=== PATIENT | female | born 1990 | race Caucasian/White ===

== ENCOUNTER 2023-08-27 08:37 | Outpatient (CLI) | payer BC, SELFPAY | END 2023-08-27 08:38 | disposition home or self-care (01) | PROVIDERS: Visit Provider Registered Nurse | DX: Z34.02 Encounter for supervision of normal first pregnancy, second trimester (principal); Z13.0 Encounter for screening for diseases of the blood and blood-forming organs and certain disorders involving the immune mechanism | CPT/HCPCS: 83540; 83550; 86787; 87491; 87591 ==

== ENCOUNTER 2023-09-21 08:11 | Outpatient (CLI) | payer BC, SELFPAY ==
--- NOTE | 2023-09-21 08:15 | CRLHL7_ITS ---
For Patients: As a result of the Century Cures Act, medical imaging exams and procedure reports are released immediately into your electronic medical record. You may view this report before your referring provider. If you have questions, please contact your health care provider. INDICATION: Evaluate anatomy. COMPARISON: none TECHNIQUE: Real time arndt scale imaging of the fetus was performed as well as color Doppler analysis of the umbilical vessels. FINDINGS: Sonographic imaging demonstrates a single living intrauterine gestation. Fetus demonstrates a regular cardiac rate of 152 beats per minute. Fetus has a vertex position. The placenta lies anteriorly without evidence of placenta previa. Placental edge 6.0 cm from the internal cervical os. Amniotic fluid volume appears normal. Single deepest vertical pocket: 4.1 cm. The cervix is closed and measures 4.3 cm in length. The composite ultrasound gestational age is calculated at 20 weeks 3 days with an estimated sonographic due date of 02/05/2024. The estimated weight is 358 grams which lies at the 74th %. The following biometric measurements were obtained: Biparietal diameter: 4.8 cm/20 weeks 3 days 65th% Head circumference: 17.9 cm/20 weeks 2 days 59th% Abdominal circumference: 16.1 cm/21 weeks 2 days 82nd% Femur length: 3.1 cm/19 weeks 5 days 31st% The HC/AC ratio measures: 1.11 range (1.07-1.25) On anatomic survey, there is a normal appearance of the cerebral ventricles, cavum septi pellucidi, cisterna magna and cerebellum. The nose, lips, and facial profile appear normal. The cervical, thoracic and lumbar spine are well visualized and appear normal. There is a normal four-chamber heart view and the left and right ventricular outflow tracts appear normal. The diaphragm and stomach appear normal. The kidneys and bladder also appear normal. There is a normal three-vessel cord and cord insertion site. The four extremities appear normal. IMPRESSION: Normal OB ultrasound exam with concordance of clinical and sonographic dating. No intrinsic abnormalities noted on anatomic survey. Dictated by Yong Roy MD @ 09/21/2023 11:17:06 AM (Electronically Signed)
== END 2023-09-21 08:12 | disposition home or self-care (01) ==
LOC: US 08:12
PROVIDERS: Visit Provider Registered Nurse
DX: Z34.92 Encounter for supervision of normal pregnancy, unspecified, second trimester (principal); Z3A.20 20 weeks gestation of pregnancy
CPT/HCPCS: 76805

== ENCOUNTER 2023-10-13 18:18 | Outpatient (CLI) | payer BC, SELFPAY ==
[2023-10-13 18:33] VITALS: PULSE 84; O2SAT 100
[2023-10-13 18:40] VITALS: BP 124/75; PULSE 90
[2023-10-13 18:42] VITALS: RESP 16; TEMP 36.6
[2023-10-13 18:57] LABS: Appearance Urine Clear (Clear); Bilirubin Urine Negative (Negative); Blood Urine Negative (Negative); Color Urine Yellow (Yellow); Glucose Urine Negative (Negative); Ketones Urine Negative (Negative); Leukocyte Esterase Urine Negative (Negative); Nitrite Urine Negative (Negative); Protein Urine Negative (Negative); Specific Gravity Urine <= 1.005 (1.000-1.030); Urobilinogen Urine 0.2 (0.2-1.0)
[2023-10-13 19:01] LABS: Amnisure Rom* Negative
[2023-10-13 19:04] LABS: Clue Cells <20% Clue Cells Seen (None Seen); Trichomonas No Trichomonas Seen (None Seen); Yeast No Yeast Seen (None Seen)
--- NOTE | 2023-10-13 19:16 | PC.OBNST ---
NST Note NST Note Start: 10/13/23 18:22 Freq: ONCE Status: Active Protocol: Document 10/13/23 19:14 ZENY (Rec: 10/13/23 19:16 [facility] [id number]) NST Note 1 Para (# of births) 0 EDC 02/08/24 Gestational Age In Weeks & Days 23 Weeks & 1 Days Patient Presented with Complaint(s) of Leaking fluid Other Complaints Patient had one small gush of fluid after using the bathroom . Amnisure negative. ELISEO and UA also negative. Appropriate for Gestational Age Yes ALEXEY Varner, ALEXEY Date 10/13/23 Appropriate for Gestational Age Yes ALEXEY Goldberg RN Date 10/13/23 OB NST charge Yes Complete NST Note via Write Note Yes The provider's electronic signature indicates the NST is reactive/appropriate for gestational age. *Note to provider: If an addendum is required, open the patient's chart and click on the note under the Nurse/Allied Health tab.
--- NOTE | 2023-10-19 13:34 | PC.OBNST ---
NST Note NST Note Start: 10/13/23 18:22 Freq: ONCE Status: Discharge Protocol: Document 10/13/23 19:14 ZENY (Rec: 10/13/23 19:16 [facility] [id number]) NST Note 1 Para (# of births) 0 EDC 02/08/24 Gestational Age In Weeks & Days 23 Weeks & 1 Days Patient Presented with Complaint(s) of Leaking fluid Other Complaints Patient had one small gush of fluid after using the bathroom . Amnisure negative. ELISEO and UA also negative. Appropriate for Gestational Age Yes ALEXEY Varner, ALEXEY Date 10/13/23 Appropriate for Gestational Age Yes ALEXEY Goldberg RN Date 10/13/23 OB NST charge Yes Complete NST Note via Write Note Yes The provider's electronic signature indicates the NST is reactive/appropriate for gestational age. *Note to provider: If an addendum is required, open the patient's chart and click on the note under the Nurse/Allied Health tab.
== END 2023-10-13 19:21 | disposition home or self-care (01) ==
LOC: OB OUT 18:18 → OB 18:25
PROVIDERS: Visit Provider Advanced Practice Midwife
DX: O47.02 False labor before 37 completed weeks of gestation, second trimester (principal); Z3A.23 23 weeks gestation of pregnancy
CPT/HCPCS: 59025; 81003; 84112; 87210; G0463

== ENCOUNTER 2023-11-18 09:07 | Outpatient (CLI) | payer BC, SELFPAY | END 2023-11-18 09:08 | disposition home or self-care (01) | LOC: NFLDREF 09:08 | PROVIDERS: Visit Provider Midwife | DX: Z34.93 Encounter for supervision of normal pregnancy, unspecified, third trimester (principal); Z3A.28 28 weeks gestation of pregnancy | CPT/HCPCS: 86592; 86850; J2791 ==

== ENCOUNTER 2024-02-15 05:57 | Inpatient (IN) | payer BC, SELFPAY ==
[2024-02-15] VITALS (57 sets, daily range): BP systolic 95–157; BP diastolic 53–100; PULSE 73–136; RESP 16–18; TEMP 36.5–37.1; O2SAT 96–100; BMI 30.1
--- OUTSIDE RECORDS SUMMARY | 2024-02-15 05:43 | XMS_ITS | Clinical Summary ---
Author Organization [facility] Address [address] [place] [address] Care Team Providers Care External Grinder Name Role Phone No Primary/Referring, Phy Primary Care Provider Unavailable Source Comments You are receiving this document as you are listed as the primary care provider,follow-up provider, or the patient has been referred to you for consultation.This is in compliance with the Medicare and[facility] EHR Incentive Program,which states Providers who transition their patient to another setting of careor provider of care or refers their patient to another provider of care shouldprovide summary care record for each transition of care or referral. [facility] Allergies No known active allergies Medications Medication Sig Dispensed Refills Start Date End Date Status propranolol (INDERAL) 10 MG tabletIndications:Per formance anxiety (HRC) Take 1 Tablet (10 mg) by mouth daily. 60 Tablet 02/17/2022 Active Active Problems Problem Noted Date Diagnosed Date Chronic abdominal pain 12/07/2018 Performance anxiety 02/01/2015 Elevated blood pressure read ing without diagnosis of hypertension 07/18/2014 Immunizations Name Administration Dates Next Due HepB Adolescent/High Risk Infant 05/01/2003,11/21,10/28/2002 HepB Ped/Adol (0-18 yrs) 05/01/2003,12/05/2002,0 10/28/2002 MMR 10/28/2002 Tdap 09/29/2011 Family History Medical History Relation Name Comments No Known Problems Father No Known Problems Mother No Known Problems Brother 1 No Known Problems Brother 2 Cancer, Breast Maternal Grandmother No Known Problems Sister Cancer, Colon Negative Family History Cancer, Ovary Negative Family History Relation Name Status Comments Father Alive Mother Alive Brother 1 Alive Brother 2 Alive Maternal Grandmother Sister Alive Social History Tobacco Use Types Packs/Day Years Used Date Smoking Tobacco: Never Smokeless Tobacco: Never Alcohol Use Standard Drinks/Week Comments Yes 0 (1 standard drink = 0.6 oz pur e alcohol) 5 per week Sex and Gender Information Value Date Recorded Sex Assigned at Not on file Gender Identity Not on file Sexual Orientation Not on file Last Filed Vital Signs Vital Sign Reading Time Taken Comments Blood Pressure 135/87 02/17/2022 11:37 AM ENVIRONMENTAL SERVICES TECH Pulse 76 02/17/2022 11:37 AM ENVIRONMENTAL SERVICES TECH Temperature 36.7 C (98.1 F) 12/22/2009 9:38 PM CDT Respiratory Rate 16 12/22/2009 9:38 PM CDT Oxygen Saturation 99% 12/22/2009 9:38 PM CDT Inhaled Oxygen Concentration - - Weight 75.3 kg (166 lb) 02/17/2022 11:37 AM ENVIRONMENTAL SERVICES TECH Height 170.8 cm (5' 7.25) 12/07/2018 7:47 AM CD T Body Mass Index 25.81 12/07/2018 7:47 AM CDT Plan of Treatment Health Maintenance Due Date Last Done Comments Hep C Screening (Preventive Services) 1989 HIV Screening (Preventive Services) 2005 Adult Preventive Visit 12/02/2020 12/02/2018 DTaP/Tdap/Td (2 - Tdap) 09/28/2021 09/29/2011 COVID-19 Vaccine ( season) 2023 Influenza (#1) 2023 Cervical Cancer Screening 02/17/2027 02/17/2022, 02/2019 Zoster/Shingles (1 of 2) 11/30/2039 HepB Completed 05/01/2003, 11/2003, 12/05/2002, Additional history exists HPV Vaccine Aged Out No longer eligi ble based on patient's age to complete this topic HepA Aged Out No longer eligi ble based on patient's age to complete this topic Hib Aged Out No longer eligi ble based on patient's age to complete this topic IPV (Polio) Aged Out No longer eligi ble based on patient's age to complete this topic RSV Aged Out No longer eligi ble based on patient's age to complete this topic MCV4 Aged Out No longer eligi ble based on patient's age to complete this topic Pneumococcal Aged Out No longer eligi ble based on patient's age to complete this topic Procedures Procedure Name Priority Date/Time Associated Diagnosis Comments PAP TEST Routine 02/17/2022 12:06 PM ENVIRONMENTAL SERVICES TECH Screening for malignant neoplasm of cervix from Last 3 Months or Most Recently Relevant to Health Maintenance Results * PAP Test (02/17/2022 12:06 PM ENVIRONMENTAL SERVICES TECH) Case Report Pap Case: [id number] Authorizing Provider: Ghazal Vernon MD Collected: 02/17/2022 1206 Ordering Location: [facility] Received: 02/17/2022 1307 Services-HEALTHCARE MANAGEMENT CONSULTANT First Screen: Stephanie Tanner CT (ASCP) Specimen: Pap Test, Routine, Cervix/Endocervix 02/27/2022 2:10 PM ENVIRONMENTAL SERVICES TECH [facility] Pap Specimen Adequacy Satisfactory for evaluation, endocervical/abdalla sformation zone component present. 02/27/2022 2:10 PM ENVIRONMENTAL SERVICES TECH [facility] Pap Interpretation (NILM) Negative for intraepithelial lesion or malignancy. 02/27/2022 2:10 PM ENVIRONMENTAL SERVICES TECH [facility] Pap Disclaimer The Pap test is a screening test designed to aid in the detection of cervical cancer and its precursor lesions. It is not a diagnostic procedure and should not be used as the sole means of detecting cervical cancer. Both false-positive and false-negative results may occur. 02/27/2022 2:10 PM ENVIRONMENTAL SERVICES TECH [facility] Gross Description The specimen is received in SurePath fixative and properly labeled. 1 Pap-stained SurePath slide is prepared. 02/27/2022 2:10 PM ENVIRONMENTAL SERVICES TECH [facility] Embedded Images 2:10 PM ENVIRONMENTAL SERVICES TECH [facility] Other Specimen Type ENTIRE ENDOCERVIX / Unknown 02/17/2022 12:06 PM ENVIRONMENTAL SERVICES TECH 02/17/2022 1:07 PM ENVIRONMENTAL SERVICES TECH Comment:LMP: Patient's last menstrual period was 02/03/2022 (exact date). Ghazal Vernon MD LAB PATHOLOGY [facility] [address] [place] [address], [facility] from Last 3 Months or Most Recently Relevant to Health Maintenance Care Teams External Grinder Relationship Specialty Start Date End Date No Primary/Referring, Corrie PCP - General 11/14/14
--- OUTSIDE RECORDS SUMMARY | 2024-02-15 05:43 | XMS_ITS | Referral Summary ---
Author Organization [facility] Address [address] [place] [address] Care Team Providers Care Applied Psychology Chair Name Role Phone Jaelyn Canales MD Primary Care Provider [phone] Allergies No known active allergies Medications propranolol (INDERAL) 10 MG tabletIndication s:Performance anxiety Take 1 tablet (10 mg) by mouth 2 times daily as needed 60 tablet 11 01/03/2020 Active Active Problems Problem Noted Date Diagnosed Date Carrier of hemochromatosis HFE gene mutation Overview (03/14/2020): Heterozygosity should not lead to abnormal iron levels or problems. Chronic abdominal pain 12/07/2018 Hypertension, unspecified type 07/01/2017 Performance anxiety 02/01/2015 Elevated blood pressure read ing without diagnosis of hypertension 07/18/2014 Resolved Problems Problem Noted Date Diagnosed Date Resolved Date LSIL (low grade squamous int raepithelial lesion) on Pap smear 06/21/2014 07/30/2016 Overview (07/30/2016): 07/17/14 LSIL, 21-24 yr old, Dx pap 12 months per guidelines 07/23/15 Pap= NIL. 1 yr pap 07/28/16 Pap= NIL. Routine screening per guidelines. Immunizations Name Administration Dates Next Due HepB 05/01/2003,12/05/2002,10/28/2002 MMR 10/28/2002 TDAP (Adacel,Boostrix) 09/29/2011 Social History Tobacco Use Types Packs/Day Years Used Date Smoking Tobacco: Never Smokeless Tobacco: Never Alcohol Use Standard Drinks/Week Comments Yes 0 (1 standard drink = 0.6 oz pur e alcohol) PHQ-2 Answer Date Recorded PHQ-2 Score 0 12/28/2019 Adolescent Education Answer Date Record ed Getting School Help Needed Not on file 12/12 Comments No Sex and Gender Information Value Date Recorded Sex Assigned at Not on file Legal Sex Female 4:18 PM CDT Gender Identity Not on file Sexual Orientation Not on file 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 Not on file Not on sandrine e Last Filed Vital Signs Vital Sign Reading Time Taken Comments Blood Pressure 126/84 12/28/2019 5:16 PM CDT Pulse 77 12/28/2019 5:16 PM CDT Temperature 36.6 C (97.8 F) 12/28/2019 5:16 PM CDT Respiratory Rate 20 12/28/2019 5:16 PM CDT Oxygen Saturation 99% 12/28/2019 5:16 PM CDT Inhaled Oxygen Concentration - - Weight 68.5 kg (151 lb) 12/28/2019 5:16 PM CDT Height 171.5 cm (5' 7.5) 12/28/2019 5:16 PM CDT Body Mass Index 23.3 12/28/2019 5:16 PM CDT Plan of Treatment Not on file Insurance [employer] Care Teams Applied Psychology Chair Relationship Specialty Start Date End Date Jaelyn Canales MD [address] [facility] [place] [address] PCP - General Internal Medicine 08/28/14
--- OUTSIDE RECORDS SUMMARY | 2024-02-15 05:43 | XMS_ITS | Clinical Summary ---
Author Organization [facility] Address [address] [place] [address] Care Team Providers Care Unit Secy Name Role Phone Jaelyn Canales MD Primary Care Provider [phone] Allergies No known active allergies Medications propranolol [...] HepB 05/01/2003,12/05/2002,10/28/2002 MMR 10/28/2002 TDAP (Adacel,Boostrix) 09/29/2011 Family History Medical History Relation Comments Family History Negative Brother Liver Disease Brother Gilbert Syndrome Family History Negative Father Breast Cancer Maternal Grandmother Family History Negative Mother Family History Negative Sister Relation Status Comments Brother Alive Father Alive Maternal Grandmother Mother Alive Sister Alive Social History Tobacco Use Types [...] 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
--- OUTSIDE RECORDS SUMMARY | 2024-02-15 05:43 | XMS_ITS | Encounter Summary ---
Author Organization [facility] Address [address] [place] [address] Care Team Providers Care Distillery Worker Name Role Phone Jaelyn Canales MD Primary Care Provider [phone] Jaelyn Canales MD Unavailable [phone] Jaelyn Canales MD Unavailable [phone] Jaelyn Canales MD Unavailable [phone] Encounter Details Date Type Department Care Team (Late st Contact Info) Description 07/10/2017 MyC Medical Advice [facility] [place] [address] [place] [address] [place] [address] [place] [address] [place] [address] Social History Tobacco Use Types Packs/Day Years Used Date Smoking Tobacco: Never Smokeless Tobacco: Never Alcohol Use Standard Drinks/Week Comments Yes 0 (1 standard drink = 0.6 oz pur e alcohol) Comments No Sex and Gender Information Value Date Recorded Sex Assigned at Not on file Legal Sex Female 4:18 PM CDT Gender Identity Not on file Sexual Orientation Not on file 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 Nadia Mitchell RN documented in this encounter Plan of Treatment Not on file documented as of this encounter Visit Diagnoses Not on filedocumented in this encounter Care Teams Distillery Worker Relationship Specialty Start Date End Date Jaelyn Canales MD [address] [place] [address] [place] [id number] PCP - General Internal Medicine 08/28/14 Jaelyn Canales MD [address] [place] [address] [place] [address] PCP - Assigned PCP 05/05/16 05/25/18 Jaelyn Canales MD [address] [place] [address] [place] [id number] Assigned PCP 05/05/16 03/07/22 Jaelyn Canales MD [address] [place] [address] [place] [id number] Assigned PCP 05/17/22 01/02/23 documented as of this encounter
--- OUTSIDE RECORDS SUMMARY | 2024-02-15 05:43 | XMS_ITS | Clinical Summary ---
Author Organization [facility] Address [place], [place] [address] Care Team Providers Care Straddle Bug Operator Name Role Phone Clinic, No Pcp Or Primary Care Provider Unavaila ble Allergies No known active allergies Medications Medication Sig Dispensed Refills Start Date End Date Status drospirenone-ethinyl estradiol (GIANVI, 28,) 3-20 mg-mcg tabletIndications:Con traception Take 1 tablet by mouth once daily. 3 Package 0 05/31/2013 Active levonorgestrel-ethiny l estrad, 0.1-20 mg-mcg, (LESSINA) 0.1-20 mg-mcg tablet Take 1 tablet by mouth once daily. 3 Package 3 06/17/2013 Active Active Problems Problem Noted Date Diagnosed Date Healthcare maintenance 01/14/2013 Immunizations Name Administration Dates Next Due Hepatitis B (Peds) 05/01/2003,12/05/2002, 003 MMR 10/28/2002 Tdap 09/29/2011 Family History Medical History Relation Name Comments Good Health Father Good Health Mother Relation Name Status Comments Father Alive Mother Alive Social History Tobacco Use Types Packs/Day Years Used Date Smoking Tobacco: Never Smokeless Tobacco: Never Alcohol Use Standard Drinks/Week Comments No 0 (1 standard drink = 0.6 oz pur e alcohol) Sex and Gender Information Value Date Recorded Sex Assigned at Not on file Gender Identity Not on file Sexual Orientation Not on file Obstetrics History Para Term AB IAB SAB Ectopic Multiple Livin g Live Births 0 0 0 0 0 0 0 0 0 0 Last Filed Vital Signs Vital Sign Reading Time Taken Comments Blood Pressure 158/92 05/08/2014 9:52 PM NUCLEAR CARDIOLOGY TECHNOLOGIST Pulse 122 05/08/2014 9:52 PM NUCLEAR CARDIOLOGY TECHNOLOGIST Temperature 36.9 C (98.5 F) 05/08/2014 9:52 PM NUCLEAR CARDIOLOGY TECHNOLOGIST Respiratory Rate 20 05/08/2014 9:52 PM NUCLEAR CARDIOLOGY TECHNOLOGIST Oxygen Saturation 99% 05/08/2014 9:52 PM NUCLEAR CARDIOLOGY TECHNOLOGIST Inhaled Oxygen Concentration - - Weight 66.4 kg (146 lb 6.4 oz) 05/31/2013 12:18 PM CDT Height 171.5 cm (5' 7.5) 05/31/2013 8:15 AM CDT Body Mass Index 22.59 05/31/2013 8:15 AM CDT Plan of Treatment Health Maintenance Due Date Last Done Comments Depression screening for age 12+ 2001 BMI (ht and wt on same day) for age 18+ 11/30/2007 Hepatitis C screening for ag e 18-79 11/30/2007 Pap test for age 21-65 05/31/2016 05/31/2013 Tetanus booster 09/28/2021 09/29/2011 COVID-19 vaccine series (2023- season) 2023 Influenza for age 9-49 11/22/2023 Tdap Completed 09/29/2011 HIV for age 15-65 Completed 05/31/2013 Pneumococcal series for age 6-64 Aged Out No longer eligible based on patient's age to complete this topic Procedures Procedure Name Priority Date/Time Associated Diagnosis Comments ANTI HIV 1/2 Routine 05/31/2013 1:09 PM CDT Screening examination for venereal disease FRONT DESK ADMIN THIN PREP PAP SCREEN IMAGED Routine 05/31/2013 9:15 AM CDT Screening for malignant neoplasm of the cervix from Last 3 Months or Most Recently Relevant to Health Maintenance Results * ANTI HIV 1/2 (05/31/2013 1:09 PM CDT) ANTI HIV 1/2 Non-reacti ve [facility] Blood specimen (specimen) BLOOD SPECIMEN / Unknown 05/31/2013 1:09 PM CDT 05/31/2013 12:49 PM CDT Leah Blake EXPLOSIVES TRUCK DRIVER SEND OUTS [facility] INTERNAL ZIP [address] [place], [place] [id number] * FRONT DESK ADMIN THIN PREP PAP SCREEN IMAGED (05/31/2013 9:15 AM CDT) CYTOLOGY CYTOPATHOLOGY REPORT [facility] Status: Final Status [id number] CLINICAL INFORMATION Last Date of LMP :12/05/13 Last Pap Date :2 years ago Last Pap Result :NIL ABN Nichols/Bx Past 5 YRS :None Hormone Usage :None Menstrual Status :Irregular Periods Nichols/Bx done today :No Additional Information :None given HPV Request :HPV if ASCUS SPECIMEN SOURCE :Cervical/vaginal ThinPrep Vial, screening SPECIMEN ADEQUACY :Satisfactory for evaluation Endocervical component present. INTERPRETATION/RES ULT Negative for intraepithelial lesion or malignancy (NIL) Cytology 1st Screener :shaka Signed by :shaka This specimen was screened by the FDA approved ThinPrep Imaging System and manually reviewed. NOTE: The Pap test is a screening technique, not a diagnostic procedure. It is used primarily to screen for squamous cancers and precursor lesions. Published studies have shown that it is subject to both false negative and false positive results. The pap test should not be used as the sole means to diagnose or exclude pre-malignant and malignant lesions. COLLECTED:05/31/13 ACCESSIONED: 05/31/13 SIGNED: 06/06/13 [facility] PAP [place] CODE NIL [facility] Tissue specimen (specimen) (Cervical/Vagina l) 05/31/2013 9:15 AM CDT 05/31/2013 9:13 AM CDT Leah Blake NP PATHOLOGY/CYTOLO GY [facility] INTERNAL ZIP [address] [place], [place] [id number] from Last 3 Months or Most Recently Relevant to Health Maintenance Care Teams Straddle Bug Operator Relationship Specialty Start Date End Date Clinic, No Pcp Or . PCP - General 05/08/14
--- OUTSIDE RECORDS SUMMARY | 2024-02-15 05:43 | XMS_ITS | Encounter Summary ---
Author Organization [facility] Address [address] [place] [address] Care Team Providers Care Non Ferrous Material Handler Name Role Phone Jaelyn Canales MD Primary Care Provider [phone] Jaelyn Canales MD Unavailable [phone] Jaelyn Canales MD Unavailable [phone] Encounter Details Date Type Department Care Team (Late st Contact Info) Description 11/26/2018 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
--- OUTSIDE RECORDS SUMMARY | 2024-02-15 05:43 | XMS_ITS | Encounter Summary ---
Author Organization [facility] Address [address] [place] [id number] Care Team Providers Care Anglesmith Name Role Phone Jaelyn Canales MD Primary Care Provider [phone] Jaelyn Canales MD Unavailable [phone] Jaelyn Canales MD Unavailable [phone] Encounter Details Date Type Department Care Team (Late st Contact Info) Description 02/14/2020 [facility] Dieudonne [address] [place] [address] [address] [place] [phone] Jaelyn Canales MD [address] [place] [address] [place]UD[place] SHAH [id number] Social History Tobacco Use Types Packs/Day Years Used Date Smoking Tobacco: Never Smokeless Tobacco: Never Alcohol Use Standard Drinks/Week Comments Yes 0 (1 standard drink = 0.6 oz pur e alcohol) PHQ-2 Answer Date Recorded PHQ-2 Score 0 12/28/2019 Comments No Sex and Gender Information Value Date Recorded Sex Assigned at Not on file Legal Sex Female 4:18 PM CDT Gender Identity Not on file Sexual Orientation Not on file 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 No / Unsure 02/15/2020 11:19 AM TRAFFIC OR SYSTEM DISPATCHER documented as of this encounter Plan of Treatment Not on file documented as of this encounter Visit Diagnoses Not on filedocumented in this encounter Care Teams Anglesmith Relationship Specialty Start Date End Date Jaelyn Canales MD [address] [facility] [place] SHAH [id number] PCP - General Internal Medicine 08/28/14 Jaelyn Canales MD [address] [place] [address] [place] SHAH [id number] Assigned PCP 05/05/16 03/07/22 Jaelyn Canales MD [address] [place] [address] [place] [id number] Assigned PCP 05/17/22 01/02/23 documented as of this encounter
--- OUTSIDE RECORDS SUMMARY | 2024-02-15 05:43 | XMS_ITS | Encounter Summary ---
Author Organization [facility] Address [address] [place] [address] Care Team Providers Care Convenience Store Manager Name Role Phone No Primary/Referring, Phy Primary Care Provider Unavailable Encounter Details Date Type Department Care Team (Latest Contact Info) Description 09/27/1999 Orders Only Tigre Freitas MD [address] [place] [address] Social History Tobacco Use Types Packs/Day Years Used Date Smoking Tobacco: Never Assessed Sex and Gender Information Value Date Recorded Sex Assigned at Not on file Gender Identity Not on file Sexual Orientation Not on file documented as of this encounter Plan of Treatment Not on file documented as of this encounter Visit Diagnoses Not on filedocumented in this encounter Care Teams Convenience Store Manager Relationship Specialty Start Date End Date No Primary/Referring, Phy PCP - General 11/14/14 documented as of this encounter
--- NOTE | 2024-02-15 06:50 | P.LDBA_ITS ---
Subjective History of Present Illness Date Seen: 02/15/24 Narrative: Patricia is being admitted to Labor and Delivery for spontaneous labor. She is a 33 year old at 41.0 weeks gestation. Her full history and physical was dictated by Selin Babcock CNM on 01/20/24. Please see this for details. She reports starting contractions yesterday around 1400 with increased discomfort and regular contractions every five minutes starting at 1700. On admission she has elevated blood pressures, denies any signs and symptoms of preeclampsia. States she has a history of elevated blood pressure during office visits prior to with normal home blood pressures. They are declining GBS treatment at this time, will consider if she has prolonged ROM. Specific Issues/Plans G 1 P 0 : Juliano Baby Girl Linda Sofia H&P done by Selin Babcock CNM on 01/20/24 1. Rh negative, tested partner was tested at [place] and is positive. Rhogam: 11/18/2023 2. Positive GBS in urine at 1st OB visit Considering antibiotics, may desire to do vaginal swab not swabbed, still undecided on treatment 3. Propranolol 10 mg. Takes on an as-needed basis for situational anxiety with work. Estimates that she takes this once a month or so. Reviewed with her that there is limited data on this. Provided her with information on [email or web address]. Suggested avoiding during . 4. Had Hemochromatosis mutation analysis done. results: heterozygous for the H63D mutation but does not carry the C282Y in the HFE gene, Not significantly predisposed to iron overload. 5. Polymorphic Eruption of worsening symptoms at 38 weeks Rx sent Covid: Not vaccinated. Recommended. Declined. Tdap: Declined 12/02/23 RSV: Flu: Covid: Per patient portal: RPR negative, HIV negative, blood type O negative, antibody screen negative, hepatitis-C negative, rubella positive, 153, hepatitis B negative, platelets 273, hemoglobin 13.3, urine culture positive for group B strep. Pap smear 07/06/2023: Negative for intraepithelial lesion or malignancy, negative HPV Varicella not completed, chlamydia and gonorrhea not completed. pt reports Gc/chlamydia were negative, declines varicella titer. OB - Problem Based A/P Additional Plan (1) Gestational hypertension: Status: Acute (2) Pain during labor: Status: Acute (3) Polymorphic eruption of : Status: Acute (4) Rh negative status during : Status: Acute (5) GBS bacteriuria: Status: Acute Plan Assessment:?? at 41.0 weeks gestation?? GBS positive? Patient is coping well with challenges of labor.?? Labor type: Spontaneous, Early labor? Category 1 FHR pattern.? complicated by: Rh negative Positive GBS in urine at 1st OB visit declining treatment at this time Anxiety uses Propranolol 10 mg sparingly. Had Hemochromatosis mutation analysis done. results: heterozygous for the H63D mutation but does not carry the C282Y in the HFE gene, Not significantly predisposed to iron overload. Polymorphic Eruption of Plan:?? * ?Admit to L & D? * IV access: none at this time, consider based on lab results * Monitoring per policy: continuous ? * Candidate for analgesia of choice.? Planning unmedicated labor for pain management * Desires waterbirth.? Consent signed and Hep C negative * Expectant management at this time * GBS positive by urine, declining antibiotics, pt will consider if prolonged ROM * Monitor blood pressures. Preeclampsia labs ordered * Patient encouraged to reposition and ambulate to promote physiologic labor and . * Anticipate ? Delivery/Labor/Induction Plan Plan: expectant management OB Exam Physical Exam Vital signs: Temp Pulse BP Pulse Ox 98.6 F 129 H 138/97 H 99 02/15/24 06:04 02/15/24 06:36 02/15/24 06:36 02/15/24 06:05 Narrative: Vitals Reviewed Constitutional:? Alert and oriented x3 HEENT:? Normocephalic, atraumatic Neck:? Supple Lungs:? Clear to auscultation bilaterally Heart:? Regular rate and rhythm, no murmur, rub or gallop Abdomen:? Soft, nontender, and gravid. Vertex by Castillo's, confirmed with cervical exam. Extremities:? No edema or erythema Cervix: 5.5 cm/100%/-1 station/vertex per RN NST: 140 bpm/moderate variability/+accelerations/early decelerations/moderate contractions every 2-3 minutes Detailed Labor and Delivery Exam Patient Gravid: Yes
[2024-02-15 07:00] LABS: Hematocrit 38.5 % (33.0-51.0); Hemoglobin* 13.1 gm/dL (12.0-16.0); Mean Corpuscular HGB Conc 34 gm/dL (32-36); Mean Corpuscular Hemoglobin 32 pg (26-34); Mean Corpuscular Volume 94 fL (80-100); Platelet Count* 228 K/uL (140-440); Red Blood Count 4.09 m/uL (4.00-5.20); White Blood Count* 13.95 K/uL (4.50-11.00)
[2024-02-15 07:07] LABS: Slide Review Reflex No
[2024-02-15 07:18] LABS: Aspartate Amino Transferase* 18 U/L (12-35); Creatinine* 0.6 mg/dL (0.5-1.5); Est. Creatinine Clearance* 128.48; Estimated Glomerular Filt Rate 121 ml/min
[2024-02-15 07:19] LABS: Alanine Aminotransferase* 12 U/L (4-35); Blood Urea Nitrogen* 9 mg/dL (5-24)
--- NOTE | 2024-02-15 07:48 | P.OBPN_ITS ---
Subjective Date Seen: 02/15/24 Narrative: Patricia is a G1 here for active stage of labor and appears to be coping well. No LOF or vaginal bleeding. Good FM. Juliano is supporting her at bedside. Her mother Latoya is planning to join later. Objective Exam: Objective: Constitutional: Alert and oriented x3, no distress, coping well Vital signs stable, see nurse documentation Abdomen: gravid, contractions palpate mild with contractions and soft between Cervix: 5.5/100/-1 per nursing exam, Vertex by Castillo per my exam NST: 140 bpm/moderate variability/present accelerations/absent decelerations/regular contractions q 3-4 min x 80-110 sec Reflexes +3/4, neg clonus Vital Signs: Last Vital Signs Temp 98.6 F 02/15/24 06:04 Pulse 104 H 02/15/24 07:28 BP 141/100 H 02/15/24 07:28 Pulse Ox 97 02/15/24 07:30 Plan Plan: Assessment:?? at 41.0 weeks gestation?? GBS positive? Patient is coping well with challenges of labor.?? Labor type: Spontaneous, Active labor Category 1 FHR pattern.? complicated by: Rh negative Positive GBS in urine at 1st OB visit declining treatment at this time Anxiety uses Propranolol 10 mg sparingly. Had Hemochromatosis mutation analysis done. results: heterozygous for the H63D mutation but does not carry the C282Y in the HFE gene, Not significantly predisposed to iron overload. Polymorphic Eruption of Labor complicated by: none, GBS +, declining treatment, GHTN diagnosis Plan:?? * IV access: Pt consents a saline lock * Monitoring per policy: continuous ? * Candidate for analgesia of choice.? Planning unmedicated labor for pain management * Desires waterbirth.? Consent signed and Hep C negative * Expectant management at this time * GBS positive by urine, declining antibiotics, pt will consider if prolonged ROM * Monitor blood pressures. Preeclampsia serum labs normal, PCR pending, GHTN diagnosis reviewed with patient and . * Patient encouraged to reposition and ambulate to promote physiologic labor and . * Anticipate ?
[2024-02-15 08:17] LABS: Total Protein Urine 20 mg/dL
[2024-02-15 08:18] LABS: Creatinine Urine 55.3 mg/dL; Protein Creatinine Ratio Urine 0.36 (0-0.19)
--- NOTE | 2024-02-15 10:05 | P.OBPN_ITS ---
Subjective Date Seen: 02/15/24 Narrative: Patricia is a G1 here for active stage of labor and appears to be coping well. No LOF or vaginal bleeding. Good FM. Juliano is supporting her at bedside. Her parents are also here supporting her. She is barely even wincing with contractions, but wanted to know how far along she was and requested a VE. Objective Exam: Objective: Constitutional: Alert and oriented x3, [mild/moderate/severe] distress, coping well Vital signs stable, see nurse documentation Abdomen: gravid, contractions palpate moderate with contractions and soft between Cervix: 7 cm/100%/-1 station/vertex, palpable sutures, BBOW NST: 140 bpm/moderate variability/accelerations present/decelerations absent/contractions regular every 2 min PCR 0.36 Vital Signs: Last Vital Signs Temp 98 F 02/15/24 09:32 Pulse 121 H 02/15/24 09:32 Resp 16 02/15/24 08:34 BP 136/92 H 02/15/24 09:32 Pulse Ox 96 02/15/24 09:33 Plan Plan: ASSESSMENT:?? Assessment:?? at 41.0 weeks gestation?? GBS positive? Patient is coping well with challenges of labor.?? Labor type: Spontaneous, Active labor Category 1 FHR pattern.? complicated by: Rh negative Positive GBS in urine at 1st OB visit declining treatment at this time Anxiety uses Propranolol 10 mg sparingly. Had Hemochromatosis mutation analysis done. results: heterozygous for the H63D mutation but does not carry the C282Y in the HFE gene, Not significantly predisposed to iron overload. Polymorphic Eruption of Labor complicated by: none, GBS +, declining treatment, preeclampsia diagnosis without severe features Plan:?? * Continue expectant management with BP and lab monitoring as indicated * Monitoring per policy: continuous ? * Candidate for analgesia of choice.? Planning unmedicated labor for pain management * Desires waterbirth.? Consent signed and Hep C negative * Expectant management at this time * GBS positive by urine, declining antibiotics, pt will consider if prolonged ROM * Patient encouraged to reposition and ambulate to promote physiologic labor and . * Anticipate ?
--- NOTE | 2024-02-15 13:13 | P.OBPN_ITS ---
Subjective Date Seen: 02/15/24 Narrative: Patricia is a G1 here for active stage of labor and appears to be coping well. No vaginal bleeding. Good FM. Juliano is supporting her at bedside. Her parents are also here supporting her. She continues to only wince occasionally with contractions, but is getting a bit more focused on them and states she is feeling pressure in her vagina and anus. Still no MILTON, vision changes or RUQ pain. Objective Exam: Objective: Constitutional: Alert and oriented x3, no distress, coping well Vital signs stable, see nurse documentation Abdomen: gravid, contractions palpate moderate with contractions and soft be tween Cervix: 8 cm/100%/0 station/vertex by palpable sutures NST: 140 bpm/moderate variability/accelerations present/rare intermittent variable decelerations noted, not repetitive/contractions q2-7 min Vital Signs: Last Vital Signs Temp 97.8 F 02/15/24 12:35 Pulse 110 H 02/15/24 12:35 Resp 16 02/15/24 12:35 BP 149/82 H 02/15/24 12:35 Pulse Ox 98 02/15/24 12:35 Plan Plan: ASSESSMENT:?? Assessment:?? at 41.0 weeks gestation?? GBS positive? Patient is coping well with challenges of labor.?? Labor type: Spontaneous, Active labor Category 1 FHR pattern.? complicated by: Rh negative Positive GBS in urine at 1st OB visit declining treatment at this time Anxiety uses Propranolol 10 mg sparingly. Had Hemochromatosis mutation analysis done. results: heterozygous for the H63D mutation but does not carry the C282Y in the HFE gene, Not significantly predisposed to iron overload. Polymorphic Eruption of Labor complicated by: none, GBS +, declining treatment, preeclampsia without severe features Plan:?? * Continue expectant management with BP and lab monitoring as indicated-Mild to moderate range BP thus far. * Monitoring per policy: continuous ? * Candidate for analgesia of choice.? Planning unmedicated labor for pain management * Desires waterbirth.? Consent signed and Hep C negative, and qualifies for the option per policy. * Expectant management at this time * GBS positive by urine, declining antibiotics, pt will consider if prolonged ROM * Patient encouraged to reposition and ambulate to promote physiologic labor and . * Nursing voice concern for blood pressures and plan for waterbirth. Policy reviewed. Susan Main MD updated of BP and change to pre-e diagnosis. No change in plan indicated at this time. * Anticipate ?
--- NOTE | 2024-02-15 15:40 | P.OBPN_ITS ---
Subjective Date Seen: 02/15/24 Narrative: Patricia is a G1 here for active stage of labor and appears to be coping well. No vaginal bleeding. Good FM. Juliano is supporting her at bedside. Her parents are also here supporting her. She continues to only wince occasionally with contractions, but is breathing thru contractions and enjoying the tub at this time. Still no MILTON, vision changes or RUQ pain. AROM around 1250 clear fluid Objective Exam: Objective:- Constitutional: Alert and oriented x3, no distress, coping well Vital signs stable, see nurse documentation Abdomen: gravid, contractions palpate moderate/strong with contractions and soft between Cervix: deferred NST: bpm/moderate variability/accelerations present/decelerations absent/contractions q 4 min x 90-120sec Vital Signs: Last Vital Signs Temp 98.2 F 02/15/24 15:34 Pulse 101 H 02/15/24 15:34 Resp 16 02/15/24 15:34 BP 128/78 02/15/24 15:34 Pulse Ox 97 02/15/24 14:40 Plan Plan: ASSESSMENT:?? Assessment:?? at 41.0 weeks gestation?? GBS positive? Patient is coping well with challenges of labor.?? Labor type: Spontaneous, Active labor Category 1 FHR pattern.? complicated by: Rh negative Positive GBS in urine at 1st OB visit declining treatment at this time Anxiety uses Propranolol 10 mg sparingly. Had Hemochromatosis mutation analysis done. results: heterozygous for the H63D mutation but does not carry the C282Y in the HFE gene, Not significantly predisposed to iron overload. Polymorphic Eruption of Labor complicated by: none, GBS +, declining treatment, preeclampsia without severe features Plan:?? * Continue expectant management with BP and lab monitoring as indicated-Mild to moderate range BP thus far, currently normotensive. * Monitoring per policy: continuous ? * Candidate for analgesia of choice.? Planning unmedicated labor for pain management * Desires waterbirth.? Consent signed and Hep C negative, and qualifies for the option per policy. * Expectant management at this time * GBS positive by urine, declining antibiotics, pt will consider if prolonged ROM * Patient encouraged to reposition and ambulate to promote physiologic labor and . * Anticipate ?
--- NOTE | 2024-02-15 17:54 | P.OBPN_ITS ---
Subjective Date Seen: 02/15/24 Narrative: Patricia is a G1 here for active stage of labor and appears to be coping well. She is questioning whether she wants any pain medications. Options reviewed. No vaginal bleeding. Good FM. Juliano is supporting her at bedside. Her parents are also here supporting her. Increasing pressure. Still no MILTON, vision changes or RUQ pain. AROM around 1250 clear fluid Objective Exam: Objective: Constitutional: Alert and oriented x3, [mild/moderate/severe] distress, coping well Vital signs stable, see nurse documentation Abdomen: gravid, contractions palpate [mild/moderate/strong] with contractions and soft between Cervix: 8 cm/90%/0 station/vertex/ROT, a little OP, Head much more applied to the cervix, but mild cervical swelling all around with more pressure on it. NST: 135 bpm/moderate variability/accelerations present/decelerations-possible earlys/contractions q2min Vital Signs: Last Vital Signs Temp 98 F 02/15/24 17:08 Pulse 103 H 02/15/24 17:08 Resp 16 02/15/24 17:08 BP 126/76 02/15/24 17:08 Pulse Ox 97 02/15/24 14:40 Plan Plan: ASSESSMENT:?? Assessment:?? at 41.0 weeks gestation?? GBS positive? Patient is coping well with support Labor type: Spontaneous, Active labor Category 1 FHR pattern.? complicated by: Rh negative Positive GBS in urine at 1st OB visit declining treatment at this time Anxiety uses Propranolol 10 mg sparingly. Had Hemochromatosis mutation analysis done. results: heterozygous for the H63D mutation but does not carry the C282Y in the HFE gene, Not significantly predisposed to iron overload. Polymorphic Eruption of Labor complicated by: none, GBS +, declining treatment, preeclampsia without severe features Plan:?? * Continue expectant management with BP and lab monitoring as indicated-Mild to moderate range BP thus far, currently normotensive. * Monitoring per policy: continuous ? * Candidate for analgesia of choice.? Planning unmedicated labor for pain management * Desires waterbirth.? Consent signed and Hep C negative, and qualifies for the option per policy. * Expectant management at this time. Saline lock in place * GBS positive by urine, declining antibiotics, pt will consider if prolonged ROM * Patient encouraged to reposition and ambulate to promote physiologic labor and . * Anticipate ?
[2024-02-15] MEDS: LACTATED RINGERS 1000 ML 1,000 ML 1200 ML IV ×2 (20:07→21:05)
--- NOTE | 2024-02-15 20:07 | P.OBPN_ITS ---
Subjective Date Seen: 02/15/24 Narrative: Patricia is a G1 here for active stage of labor and appears to be coping well. She has been resting for the last hour. No vaginal bleeding. Good FM. Juliano is supporting her at bedside. Her parents are also here supporting her. She reports she does not feel any increase in pressure or strength of contractions. She is feeling very fatigued and desiring an epidural. Still no MILTON, vision changes or RUQ pain. AROM around 1250 clear fluid Objective Exam: Objective: Constitutional: Alert and oriented x3, moderate distress, coping well Vital signs stable, see nurse documentation Abdomen: gravid, contractions palpate moderate with contractions and soft between Cervix: 8 cm/80%/0 station/vertex, moderate moulding, right asynclitic NST: 140 bpm/moderate variability/accelerations present/decelerations absent currently, previous intermittent variables and earlys/contractions q3 min last x 2 min Vital Signs: Last Vital Signs Temp 97.9 F 02/15/24 19:25 Pulse 90 02/15/24 19:24 Resp 18 02/15/24 19:25 BP 139/91 H 02/15/24 19:24 Pulse Ox 97 02/15/24 14:40 Plan Plan: ASSESSMENT:?? Assessment:?? at 41.0 weeks gestation?? GBS positive? Patient is coping well with support Labor type: Spontaneous, Active labor Category 1 FHR pattern.? complicated by: Rh negative Positive GBS in urine at 1st OB visit declining treatment at this time Anxiety uses Propranolol 10 mg sparingly. Had Hemochromatosis mutation analysis done. results: heterozygous for the H63D mutation but does not carry the C282Y in the HFE gene, Not significantly predisposed to iron overload. Polymorphic Eruption of Labor complicated by: none, GBS +, declining treatment, preeclampsia without severe features, protracted labor Plan:?? * Recommend augmentation for protracted labor with BP and lab monitoring as indicated-Mild to moderate range BP thus far, currently normotensive. Pitocin augmentation consented after epidural placement. * Monitoring per policy: continuous ? * Candidate for analgesia of choice.?Desiring epidural, bolus started, team notified. * Saline lock in place, type and screen ordered. Reviewed higher risk of hemorrhage with slow, protracted labor with Patricia and Juliano. * GBS positive by urine, declining antibiotics, pt will consider if prolonged ROM * Patient encouraged to reposition and ambulate to promote physiologic labor and . * Anticipate ?
[2024-02-15] MEDS: fentaNYL 250 MCG/5 ML inj 100 MCG EPIDURAL (20:45)
[2024-02-15] MEDS: LIDOCAINE 2% (PF) 5 ML VIAL EPIDURAL (20:45)
[2024-02-15] MEDS: ROPIVACAINE 0.2% 100 ml 100 ML 12 MG EPIDURAL (20:46)
--- NOTE | 2024-02-15 20:57 | PM.ANBPRC ---
[facility] Medical History (Updated 02/15/24 @ 07:03 by Jodi Aburto CNM) No acute medical problems Surgical History (Updated 01/20/24 @ 15:47 by Unique Babcock CNM) No significant past surgical history Family History (Updated 01/20/24 @ 15:47 by Unique Babcock CNM) Maternal Grandmother Breast cancer, Onset Age: 39 Social History Narrative: Granite Countertop Installer. Bachelor's degree. Lives in [place]. What is your current living situation?: I presently have a place to live Problems where you live: no known problems In the past 12 months, utilities in danger of being shut off: no In the past 12 mos, have been you worried that your food would run out before you had money to buy more?: never true In the past 12 mos, the food you bought just didn't last and you didn't have money to buy more?: never true Smoking Status: Never smoker How often does anyone, including family, friends and others, physically hurt you: never How often does anyone, including family, friends and others, insult or talk down to you: never How often does anyone, including family, friends and others, threaten you with harm: never How often does anyone, including family, friends and others, scream or curse at you: never Meds Home Medications and Allergies Home Medications ?Medication ?Instructions ?Recorded ?Confirmed ?Type vitamins no.119-iron 1 tab PO DAILY 09/21/23 02/15/24 History fumarate 29 mg-folic acid 1 mg tablet Allergies Allergy/AdvReac Type Severity Reaction Status Date / Time No Known Drug Allergies Allergy Verified 02/11/24 11:21 Results Labs Labs: Laboratory Results - last 24 hr 02/15/24 02/15/24 06:46 07:39 WBC 13.95 H RBC 4.09 Hgb 13.1 Hct 38.5 MCV 94 MCH 32 MCHC 34 Plt Count 228 BUN 9 Creatinine 0.6 Estimated Creat Clear 128.48 Estimated GFR 121 AST 18 ALT 12 Urine Creatinine 55.3 Protein/Creatinin Ratio 0.36 H Urine Total Protein 20 Vital Signs Vital Signs: Last Vital Signs Temp 97.9 F 02/15/24 19:25 Pulse 98 02/15/24 20:52 Resp 18 02/15/24 19:25 BP 139/76 02/15/24 20:52 Pulse Ox 99 02/15/24 20:55 Weight: 88.496 kg Height: 171.45 cm Anesthesia Procedures Epidural Insertion Patient Location: OB Start Time: 20:00 Stop Time: 21:00 Start Date: 02/15/24 Stop Date: 02/15/24 Reason for Block: primary anesthetic Patient Position: sitting Performed By: Mark Villegas Preanesthetic Checklist: IV checked, risks and benefits discussed, surgical consent, monitors and equipment checked, pre-op evaluation, timeout performed and anesthesia consent Prep: chlorhexidine gluconate Monitoring: blood pressure monitoring, monitoring coordinator, continuous pulse oximetry and heart rate Approach: midline Vertebral Space: lumbar (1-5) Needle Type: Tuohy needle Injection Technique: continuous catheter Needle gauge: 17 Needle Length (cm): 10 cm Needle Insertion Depth (cm): 6 Catheter Gauge: 19 Catheter Type: multi-orifice Catheter at skin depth (cm): 12 Test Dose Result: negative and lidocaine 1.5% with epinephrine 1 to 200,000 Events: other
[2024-02-15] MEDS: OXYTOCIN 30 unit/500 ML in NS 30 UNIT/500 ML BAG IVPB (21:15)
[2024-02-15] MEDS: PHENYLEPHRINE 100 MCG/ML SYRINGE IVP ×3 (21:31→23:10)
[2024-02-15] MEDS: diphenhydrAMINE 50 MG/ML inj 12.5 MG IVP (22:01)
[2024-02-16] VITALS (26 sets, daily range): BP systolic 101–143; BP diastolic 61–90; PULSE 78–133; RESP 16–18; TEMP 36.5–36.9; O2SAT 95–99
[2024-02-16] MEDS: LIDOCAINE 1 % PF 30 ML INJECTION (02:14)
--- NOTE | 2024-02-16 02:42 | W.PM.OBVAGDE ---
OB Procedure Vag Delivery Mother Details Mother Details: The patient is a 33 year-old, 1, Para 0, admitted on 02/15/24 at 41w 1d gestation. Additional Details Amniotic Membrane Status: AROM Amniotic Membrane Rupture Date: 02/15/24 Amniotic Membrane Rupture Time: 12:53 Amniotic Membrane Fluid Description: Clear Analgesia/Anesthesia Type: Epidural Waterbirth: No Pitcoin: Yes Intrapartal Events: Labor Augmentation Delivery augmentation: rupture of membranes and pitocin Labor Onset: 05:45 Complete: 00:39 Pushin:45 Heart: heart tones during second stage were baseline 140 bpm with repetitive variables, moderate variability through out. Good progress toward delivery. About 130am slower return to baseline noted and encouragement to hasten delivery given. Cat 2 tones. Delivery Details Delivery Date: 02/16/24 Delivery Time: 01:52 Route of delivery: Infant Gender: Female Viability: Alive; Heart Rate Present Position at Delivery: OA Delivery Details: Patient was admitted for active labor and progressed with augmentation. AROM noted at 1253 with clear fluid. Patient was complete at 0039 and pushing at 0048. of a viable female at 0152 in semifowlers in bed. Vertex delivered OA. Tight Nuchal cord x1, delivered through without complication. Body delivered easily and without incident. Infant passed to mothers abdomen with a vigorous cry. Cord was clamped and cut at approx 2 minutes due to large gush of vaginal bleeding with placental seperation. APGARS were 9 at one minute and 9 at five minutes respectively. Mouth was bulb suctioned. Intact placenta with a 3 vessel cord delivered spontaneously at 0155. Fundus firm.2nd degree, bilateral sulcus identified and repaired in typical fashion. QBL 550 cc. Mother and baby stable; mother plans to breastfeed. weight pending.? 1 Minute Interval Total Score: 9 5 Minute Interval Total Score: 9 Additional Details Shoulder Dystocia: No Placenta Delivery Time: 01:55 Placental Delivery Description: Spontaneous Delivery repair: Vicryl Procedure Done: Global Blood Loss: 550 Laceration: Perineal - 2nd Degree (and bilateral sulcus repaired) Episiotomy Description: None Blood Loss Measurement Type: QBL Bakri Used: No Sponge/Need Count Correct: Yes Cord Vessel Description: 3 Vessels, Nuchal Cord (x1) and Tight Event Summary Status: Mother and infant were stable after delivery. Disposition: floor
[2024-02-16] MEDS: IBUPROFEN 600 MG TABLET PO ×4 (03:00→23:00)
[2024-02-16] MEDS: DOCUSATE SODIUM 100 MG CAPSULE PO (08:38)
--- NOTE | 2024-02-16 10:13 | PM.ANPOST ---
Post Anesthesia Note Post Anesthesia Note Patient seen: Inpatient Respiratory Status: adequate Cardiovascular Status: adequate Mental Status: baseline Pain: adequate Temp: baseline Anesthetic awareness: N/A Complications: none Follow care: none
[2024-02-16 22:01] LABS: Rapid Plasma Reagin (RPR) Non Reactive (Non Reactive)
[2024-02-17 01:30] VITALS: BP 120/68; PULSE 82; RESP 16; TEMP 36.7; O2SAT 99
[2024-02-17 06:00] VITALS: BP 113/75; PULSE 80; RESP 16; TEMP 36.8; O2SAT 99
[2024-02-17 06:33] LABS: Hemoglobin* 10.7 gm/dL (12.0-16.0)
[2024-02-17] MEDS: IBUPROFEN 600 MG TABLET PO ×2 (06:56→14:06)
--- NOTE | 2024-02-17 08:25 | PM.OBDSVD1 ---
DS: Providers Provider Date Seen: 02/17/24 Date of admission: 02/15/24 05:57 Primary care physician: Not a Local Provider Admitting Clinician: Jodi Aburto CNM Attending Physician on discharge: Jodi Aburto CNM Date of Discharge: 02/17/24 DS: Diagnosis Discharge Diagnosis (1) care and examination of lactating mother: Status: Acute (2) Preeclampsia: Status: Acute (3) Rh negative status during : Status: Acute (4) GBS bacteriuria: Status: Acute Exam Narrative: Exam Narrative: VSS, afebrile GENERAL APPEARANCE: ?normal affect, alert, no distress MOOD: ?appropriate HEENT: normocephalic, neck supple, full ROM CHEST: ?Symmetrical chest wall movement. ?Normal respiratory effort. ?Clear to auscultation HEART: ?regular rate and rhythm ABDOMEN: ?soft, non-tender. Uterine fundus is firm, at Umbilicus, Midline and is appropriate for the stage of recovery. ?Bowel sounds present. PERINEUM: ?mild edema of the perineum, there is a 2nd degree laceration that is healing well. EXTREMITIES: ?normal and trace edema Const: Vital Signs, click to edit/add: Vital Signs - 24 hr 02/16/24 12:45 02/16/24 16:59 02/16/24 21:30 Temperature 97.7 F 98 F 97.8 F Pulse Rate [Pulse Oximeter] 98 91 82 Respiratory Rate 16 16 16 Blood Pressure [Ri ght Arm] 113/70 121/77 124/78 Pulse Oximetry 95 95 99 Oxygen Delivery Me thod Room Air Room Air Room Air 02/17/24 01:30 02/17/24 06:00 Temperature 98.0 F 98.2 F Pulse Rate [Pulse Oximeter] 82 80 Respiratory Rate 16 16 Blood Pressure [Ri ght Arm] 120/68 113/75 Pulse Oximetry 99 99 Oxygen Delivery Me thod Room Air Room Air Documenting provider has reviewed patient's vital signs: yes OB - DS: Summary Hospital Course Hospital Course: Patricia is a 33 y.o. who was admitted to L & D for labor. ?She had an uncomplicated NVD.?The patient feels well. ?The pain is well controlled with current medications. ?She has no new complaints. ?She is breast feeding and reports things are going well.? the patient has done well.? Vitals have been stable.? She has remained afebrile.? Has a good appetite, is tolerating a general diet. ?She is voiding without difficulty.? She is passing gas and has not had a bowel movement.? She is ambulating and denies any dizziness.? Has Small amount of rubra lochia. ?She is planning condoms for prevention. Peripartum Data Infant delivery method: Vaginal Laceration description: Perineal - 2nd Degree complications: none Neola Infant Gender: Female Discharge Plan: Home Status at Discharge Functional status at discharge: independent ambulation Overall status at discharge: patient is progressing back to baseline Time Spent with Patient Time attestation: Total time spent providing and/or coordinating discharge services: Time spent: Less than 30 minutes Discharge Plan Discharge Disposition: Home, Self-Care Date of Admission: 02/15/24 05:57 Attending Provider on Discharge: Jodi Aburto Primary Care Provider: Provider,Not a Local Condition: Stable Anticipated Discharge Date/Time: 02/17/24 12:00 Discharge Medications: New acetaminophen 500 mg Tablet 1,000 mg PO Q6H PRNQty: 0 0RF docusate sodium 100 mg Capsule 100 mg PO DAILY Qty: 90 0RF ferrous sulfate 325 mg (65 mg iron) Tablet 325 mg PO Q48H Qty: 30 0RF ibuprofen 600 mg Tablet 600 mg PO Q6H PRNQty: 60 0RF Continued PNV 119-iron fum-folic acid 29 mg iron- 1 mg tablet 1 tab PO DAILY Discharge Orders: Discharge Order (Routine); Ordered 02/17/24 Ordered By: Jodi Aburto Patient Education: Preeclampsia During (DC), OB Over the Counter Medication Information, OB Vaginal/Breast Feeding Additional Instructions: Discharge instructions were reviewed with the patient including signs and symptoms of infection and home going medications Nothing vaginally for 6 weeks: no tampons or intercourse Off Work or School for 6 weeks Follow [facility] for a BP check?02/19/24 Call with BP greater than or equal to 150/100 2-week visit: discuss feeding concerns, review control options and screen for anxiety/depression. 6-week visit for an annual exam. consultation services are available to all mothers and babies for the first year after delivery.? To make an appointment, please call [phone]. Activity Level: Activity as Tolerated Discharge Diet: Regular Follow Up Appointments: [facility] [Provider Group] Forms: Media Battlesth Info Instructions
[2024-02-17 09:30] VITALS: BP 97/60; PULSE 93; RESP 16; TEMP 36.4; O2SAT 97
[2024-02-17] MEDS: FERROUS SULFATE 325 MG TABLET PO (10:59)
[2024-02-17] MEDS: DOCUSATE SODIUM 100 MG CAPSULE PO (10:59)
== END 2024-02-17 15:15 | disposition home or self-care (01) | DRG 560 ==
LOC: OB OUT 05:57 → OB 05:57
PROVIDERS: Midwife; Admitting Provider Advanced Practice Midwife; Visit Provider Advanced Practice Midwife
DX: O48.0 Post-term pregnancy (principal); O14.04 Mild to moderate pre-eclampsia, complicating childbirth; O99.824 Streptococcus B carrier state complicating childbirth; O70.1 Second degree perineal laceration during delivery; O26.893 Other specified pregnancy related conditions, third trimester; Z67.41 Type O blood, Rh negative; O99.344 Other mental disorders complicating childbirth; F41.8 Other specified anxiety disorders; O26.86 Pruritic urticarial papules and plaques of pregnancy (PUPPP); Z37.0 Single live birth; Z3A.41 41 weeks gestation of pregnancy
CPT/HCPCS: 01967; 36415; 82565; 82570; 84156; 84450; 84460; 84520; 85018; 85027; 85461; 86592; 86850; 86900; 86901; 88307; A9270; J1200; J2003; J2371; J2791; J2795; J3010; J7120

== ENCOUNTER 2024-02-19 14:30 | Outpatient (CLI) | payer BC, SELFPAY ==
--- OUTSIDE RECORDS SUMMARY | 2024-02-19 14:40 | XMS_ITS | Clinical Summary ---
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
--- OUTSIDE RECORDS SUMMARY | 2024-02-19 14:40 | XMS_ITS | Clinical Summary ---
Author Organization [facility] Address [address] [place] [address] Care Team Providers Care Time Study Clerk Name Role Phone No Primary/Referring, Phy Primary Care Provider Unavailable Source Comments You are receiving this document as you are listed as the primary care provider,follow-up provider, or the patient has been referred to you for consultation.This is in compliance with the Medicare and[facility] EHR Incentive Program,which states Providers who transition their patient to another setting of careor provider of care or refers their patient to another provider of care shouldprovide summary care record for each transition of care or referral. [facility] Allergies No known active allergies Medications Medication [...] Comments Blood Pressure 135/87 02/17/2022 11:37 AM USED CAR SALESPERSON Pulse 76 02/17/2022 11:37 AM USED CAR SALESPERSON Temperature 36.7 C (98.1 F) 12/22/2009 9:38 PM CDT Respiratory Rate 16 12/22/2009 9:38 PM CDT Oxygen Saturation 99% 12/22/2009 9:38 PM CDT Inhaled Oxygen Concentration - - Weight 75.3 kg (166 lb) 02/17/2022 11:37 AM USED CAR SALESPERSON Height 170.8 cm (5' 7.25) 12/07/2018 7:47 [...] Comments PAP TEST Routine 02/17/2022 12:06 PM USED CAR SALESPERSON Screening for malignant neoplasm of cervix from Last 3 Months or Most Recently Relevant to Health Maintenance Results * PAP Test (02/17/2022 12:06 PM USED CAR SALESPERSON) Case Report Pap Case: [id number] Authorizing Provider: Ghazal Vernon MD Collected: 02/17/2022 1206 Ordering Location: [facility] Received: 02/17/2022 1307 Services-WET PROCESS ASSISTANT HEAD MILLER First Screen: Stephanie Tanner CT (ASCP) Specimen: Pap Test, Routine, Cervix/Endocervix 02/27/2022 2:10 PM USED CAR SALESPERSON [facility] Pap Specimen Adequacy Satisfactory for evaluation, endocervical/abdalla sformation zone component present. 02/27/2022 2:10 PM USED CAR SALESPERSON [facility] Pap Interpretation (NILM) Negative for intraepithelial lesion or malignancy. 02/27/2022 2:10 PM USED CAR SALESPERSON [facility] Pap Disclaimer The Pap test is a screening test designed to aid in the detection of cervical cancer and its precursor lesions. It is not a diagnostic procedure and should not be used as the sole means of detecting cervical cancer. Both false-positive and false-negative results may occur. 02/27/2022 2:10 PM USED CAR SALESPERSON [facility] Gross Description The specimen is received in SurePath fixative and properly labeled. 1 Pap-stained SurePath slide is prepared. 02/27/2022 2:10 PM USED CAR SALESPERSON [facility] Embedded Images 2:10 PM USED CAR SALESPERSON [facility] Other Specimen Type ENTIRE ENDOCERVIX / Unknown 02/17/2022 12:06 PM USED CAR SALESPERSON 02/17/2022 1:07 PM USED CAR SALESPERSON Comment:LMP: Patient's last menstrual period was 02/03/2022 (exact date). Ghazal Vernon MD LAB PATHOLOGY [facility] [address] [place] [address], [facility] from Last 3 Months or Most Recently Relevant to Health Maintenance Care Teams Time Study Clerk Relationship Specialty Start Date End Date No Primary/Referring, Corrie PCP - General 11/14/14
--- OUTSIDE RECORDS SUMMARY | 2024-02-19 14:40 | XMS_ITS | Encounter Summary ---
Author Organization [facility] Address [address] [place] [address] Care Team Providers Care Manager Mountain Name Role Phone No Primary/Referring, Phy Primary Care Provider Unavailable Encounter Details Date Type Department Care Team (Latest Contact Info) Description 09/27/1999 Orders Only Tigre Freitas MD [address] [facility] [place] [address] Social History Tobacco Use Types Packs/Day Years Used Date Smoking Tobacco: Never Assessed Sex and Gender Information Value Date Recorded Sex Assigned at Not on file Gender Identity Not on file Sexual Orientation Not on file documented as of this encounter Plan of Treatment Not on file documented as of this encounter Visit Diagnoses Not on filedocumented in this encounter Care Teams Manager Mountain Relationship Specialty Start Date End Date No Primary/Referring, Phy PCP - General 11/14/14 documented as of this encounter
--- OUTSIDE RECORDS SUMMARY | 2024-02-19 14:41 | XMS_ITS | Encounter Summary ---
Author Organization [facility] Address [address] [place] [address] Care Team Providers Care Belling Machine Operator Name Role Phone Jaelyn Canales MD Primary Care Provider [phone] Jaelny Canales MD Unavailable [phone] Jaelyn Canales MD Unavailable [phone] Jaelyn Canales MD Unavailable [phone] Encounter Details Date Type Department Care Team (Late st Contact Info) Description 07/10/2017 [facility] Medical Advice [facility] [place] [address] [place] [address] [place] [address] [place] [address] [place] [address] Social History Tobacco Use [...] 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
--- OUTSIDE RECORDS SUMMARY | 2024-02-19 14:41 | XMS_ITS | Encounter Summary ---
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 Not on file Not on fi le documented as of this encounter Plan of Treatment Not on file documented as of this encounter Visit Diagnoses Not on filedocumented in this encounter Care Teams Full Service Vending Driver Relationship Specialty Start Date End Date Jaelyn Canales MD [address] [facility] [place] [address] PCP - General Internal Medicine 08/28/14 Jaelyn Canales MD [address] [facility] [place] [address] Assigned PCP 05/05/16 03/07/22 Jaelyn Canales MD [address] [facility] [place] [address] Assigned PCP 05/17/22 01/02/23 documented as of this encounter
--- OUTSIDE RECORDS SUMMARY | 2024-02-19 14:41 | XMS_ITS | Referral Summary ---
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
--- OUTSIDE RECORDS SUMMARY | 2024-02-19 14:41 | XMS_ITS | Encounter Summary ---
Author Organization [facility] Address [address] [place] [address] Care Team Providers Care Cooking Teacher Name Role Phone Jaelyn Canales MD Primary Care Provider [phone] Jaelyn Canales MD Unavailable [phone] Jaelyn Canales MD Unavailable [phone] Encounter Details Date Type Department Care Team (Late st Contact Info) Description 02/14/2020 [facility] [place] [address] [place] [address] [address] [place] [address] Jaelyn Canales MD [address] [place] [address] [place] [address] Social History Tobacco Use [...] 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 No / Unsure 02/15/2020 11:19 AM PRINCIPAL MECHANICAL ENGINEER documented as of this encounter Plan of Treatment Not on file documented as of this encounter Visit Diagnoses Not on filedocumented in this encounter Care Teams Cooking Teacher Relationship Specialty Start Date End Date Jaelyn Canales MD [address] [facility] [place] [address] PCP - General Internal Medicine 08/28/14 Jaelyn Canales MD [address] [place] [address] [place] [id number] Assigned PCP 05/05/16 03/07/22 Jaelyn Canales MD [address] [place] [address] [place] [address] Assigned PCP 05/17/22 01/02/23 documented as of this encounter
--- OUTSIDE RECORDS SUMMARY | 2024-02-19 14:41 | XMS_ITS | Clinical Summary ---
Author Organization [facility] Address [place], [place] [address] Care Team Providers Care Marble Coper Name Role Phone Clinic, No Pcp Or [...] Comments Blood Pressure 158/92 05/08/2014 9:52 PM SEWING MACHINIST Pulse 122 05/08/2014 9:52 PM SEWING MACHINIST Temperature 36.9 C (98.5 F) 05/08/2014 9:52 PM SEWING MACHINIST Respiratory Rate 20 05/08/2014 9:52 PM SEWING MACHINIST Oxygen Saturation 99% 05/08/2014 9:52 PM SEWING MACHINIST Inhaled Oxygen Concentration - - Weight 66.4 [...] PM CDT Screening examination for venereal disease MARINE DIESEL TECHNICIAN THIN PREP PAP SCREEN IMAGED Routine 05/31/2013 9:15 AM CDT Screening for malignant neoplasm of the cervix from Last 3 Months or Most Recently Relevant to Health Maintenance Results * ANTI HIV 1/2 (05/31/2013 1:09 PM CDT) ANTI HIV 1/2 Non-reacti ve [facility] Blood specimen (specimen) BLOOD SPECIMEN / Unknown 05/31/2013 1:09 PM CDT 05/31/2013 12:49 PM CDT Leah Blake MARINE PIPEFITTER HELPER SEND OUTS [facility] INTERNAL ZIP [address] [place], [place] [id number] * MARINE DIESEL TECHNICIAN THIN PREP PAP SCREEN IMAGED (05/31/2013 9:15 AM CDT) CYTOLOGY CYTOPATHOLOGY REPORT [facility] Status: Final Status [id number] CLINICAL INFORMATION Last Date of LMP :12/05/13 Last Pap Date :2 years ago Last Pap Result :NIL ABN Sunset/Bx Past 5 YRS :None Hormone Usage :None Menstrual Status :Irregular Periods Sunset/Bx done today :No Additional Information :None given [...] malignant lesions. COLLECTED:05/31/13 ACCESSIONED: 05/31/13 SIGNED: 06/06/13 [facility] PAP [place] CODE NIL [facility] Tissue specimen (specimen) (Cervical/Vagina l) 05/31/2013 9:15 AM CDT 05/31/2013 9:13 AM CDT Leah Blake NP PATHOLOGY/CYTOLO GY [facility] INTERNAL ZIP [address] [place], [place] [id number] from Last 3 Months or Most Recently Relevant to Health Maintenance Care Teams Marble Coper Relationship Specialty Start Date End Date Clinic, No Pcp Or . PCP - General 05/08/14
== END 2024-02-19 14:31 | disposition home or self-care (01) ==
PROVIDERS: Visit Provider Midwife
DX: O14.13 Severe pre-eclampsia, third trimester (principal)
CPT/HCPCS: 82565; 84450; 84460; 84520

== ENCOUNTER 2024-03-02 14:05 | Outpatient (CLI) | payer BC, SELFPAY | END 2024-03-02 14:06 | disposition home or self-care (01) | PROVIDERS: Visit Provider Midwife | DX: Z39.2 Encounter for routine postpartum follow-up (principal) | CPT/HCPCS: 81240; 81241; 85260; 85300; 85302; 85303; 85306; 86146; 86147 ==